=== PATIENT | male | born 1970 | race African-American/Black ===

== ENCOUNTER 2025-04-19 20:50 | Emergency (ER) | payer OTHER, SELFPAY ==
--- NOTE | 2025-04-19 21:03 | ED_ITS ---
HPI - Abdominal Pain General Time Seen by Provider: 21:03 Date Seen: 04/19/25 Chief Complaint: Abdominal Pain Stated Complaint: Abdominal pain Time Seen by Provider: 04/19/25 21:02 Source: patient Mode of arrival: ambulatory Limitations: no limitations History of Present Illness HPI narrative: 55-year-old male who presents today with abdominal pain. Patient with 2 days of right-sided abdominal pain. He notices this most when he moves or when he takes big breath. Denies shortness of breath, no nausea, vomiting, or diarrhea. No prior surgeries. Denies fevers or chills, pain is not better worse with eating. Has not taken anything for this. 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 Related Data Home Medications ?Medication ?Instructions ?Recorded ?Confirmed No Known Home Medications 04/19/2503/25 Allergies Allergy/AdvReac Type Severity Reaction Status Date / Time No Known Drug Allergies Allergy Verified 04/19/25 20:55 Exam Narrative: Exam Narrative: General: Well-developed and well-nourished, no acute distress Head: Atraumatic and normocephalic Eyes: Pupils are equal reactive, extraocular motions intact, conjunctiva clear ENT: External nose and ears are normal, posterior pharynx without erythema or exudate Neck: No midline cervical tenderness, full spontaneous range of motion the neck, trachea midline, no adenopathy Heart: Regular rate and rhythm no murmurs or thrills Lungs: Clear to auscultation bilaterally without wheezes or crackles Abdomen: Soft, nontender, nondistended with active bowel sounds Musculoskeletal: No tenderness, deformity, or edema Neurologic: Awake, alert, and oriented x3, no gross focal neurologic deficits, cranial nerves intact as tested Psych: Mood and affect are appropriate Skin: No rashes Const: Vital Signs, click to edit/add: Vital Signs - 24 hr 04/19/25 21:04 Temperature 98.8 F Pulse Rate [Pulse Oximeter] 84 Respiratory Rate 16 Blood Pressure [Ri ght Upper Arm] 172/136 H Pulse Oximetry 95 Oxygen Delivery Me thod Room Air Course Course ED Course: Reviewed [facility], no prior records available. Patient seen examined, presents today with right-sided abdominal pain for last couple of days, worse with breathing and movement. No shortness of breath. On exam, patient is hypertensive, no tachycardia or hypoxia, no abdominal tenderness on exam. This may be musculoskeletal, consider gallbladder as well but no right upper quadrant tenderness and not worse with eating. Consider pulmonary embolism give the pain is sharp with deep inspiration, although location is little bit lower than would typically be thought of for pulmonary embolism, he has no tenderness convincing for intra-abdominal pathology. Cannot PERC out due to age, D-dimer ordered. Reevaluation(s) Time of Reevaluation #1: 21:59 Reevaluation #1: Labs independently interpreted by me with elevated D-dimer is 0.95, CT PE study is ordered. Also elevated hepatic panel with elevated AST, ALT, alkaline phosphatase but normal bilirubin and lipase. No prior for comparison, CT order ed. Time of Reevaluation #2: 23:06 Reevaluation #2: CT scan of the chest independently interpreted by me negative for acute fin dings. Reviewed radiology interpretation of CT scan of the chest as well as CT scan of the abdomen and pelvis. No acute findings but there is a lytic lesion on the right iliac wing. Patient will follow-up with his primary care provider for further evaluation of this coming to comparison with prior imaging or MRI. No acute findings to explain patient's pain today. No evidence of acute cholecys titis, cholelithiasis, appendicitis, pulmonary embolism, pneumonia. ACS is clinically unlikely. Patient is stable for discharge with outpatient follow-up. Vital Signs Vital signs: Initial Vital Signs Temperature 98.8 F 04/19/25 21:04 Temperature Source Temporal Artery Scan 04/19/25 21:04 Pulse Rate 84 04/19/25 21:04 Respiratory Rate 16 04/19/25 21:04 Blood Pressure 172/136 H 04/19/25 21:04 Blood Pressure Mean 148 H 04/19/25 21:04 Blood Pressure Position Sitting 04/19/25 21:04 Pulse Oximetry 95 04/19/25 21:04 Oxygen Delivery Method Room Air 04/19/25 21:04 Vital Signs Temperature 98.8 F 04/19/25 21:04 Pulse Rate 84 04/19/25 21:04 Respiratory Rate 16 04/19/25 21:04 Blood Pressure 172/136 H 04/19/25 21:04 Pulse Oximetry 95 04/19/25 21:04 Oxygen Delivery Method Room Air 04/19/25 21:04 Temperature 98.8 F 04/19/25 21:04 Pulse Rate 84 04/19/25 21:04 Respiratory Rate 16 04/19/25 21:04 Blood Pressure 172/136 H 04/19/25 21:04 Pulse Oximetry 95 04/19/25 21:04 Oxygen Delivery Method Room Air 04/19/25 21:04 MDM - Abdominal Pain Lab Data Labs: Lab Results 04/19/25 04/19/25 Range/Units 21:21 Unknown WBC 6.93 (4.50-11.00) K/uL RBC 5.23 (4.30-5.90) m/uL Hgb 15.3 (13.5-17.5) gm/dL Hct 44.8 (37.0-53.0) % MCV 86 (80-100) fL MCH 29 (26-34) pg MCHC 34 (32-36) gm/dL RDW Coeff of Sumit 13.0 (11.5-15.5) % Plt Count 173 (140-440) K/uL Neut % (Auto) 52.7 (42.0-72.0) % Lymph % (Auto) 33.5 (20-44) % [place] % (Auto) 9.7 (0.0-11.0) % Eos % (Auto) 3.5 (0.0-7.0) % Baso % (Auto) 0.3 (0.0-3.0) % Neut # (Auto) 3.66 (1.7-7.0) K/uL Lymph # (Auto) 2.32 (0.90-2.90) K/uL [place] # (Auto) 0.70 (0.00-0.90) K/UL Eos # (Auto) 0.24 (0.00-0.50) K/uL Baso # (Auto) 0.02 (0.00-0.30) K/uL Abs Immat Gran (auto) 0.02 (0.00-0.30) K/uL Imm/Tot Granulo (auto) 0.3 % D-Dimer Quant (PE/DVT) 0.95 H (0.00-0.50) ug/ml Sodium 133 L (135-149) mmol/L Potassium 3.9 (3.6-5.1) mmol/L Chloride 99 (96-114) mmol/L Carbon Dioxide 27 (20-32) mmol/L Anion Gap 7 (7-15) mEq/L BUN 10 (7-30) mg/dL Creatinine 1.0 (0.5-1.5) mg/dL Estimated Creat Clear 81.70 Estimated GFR 89 ml/min Glucose 190 H (60-115) mg/dL Calcium 9.1 (8.4-10.6) mg/dL Total Bilirubin 1.4 (0.1-1.5) mg/dL Direct Bilirubin 0.3 (0.0-0.5) mg/dL AST 84 H (12-35) U/L ALT 145 H (4-50) U/L Alkaline Phosphatase 161 H (40-150) U/L Total Protein 7.7 (6.0-8.3) g/dL Albumin 3.9 (3.3-5.0) g/dL Lipase 157 (23-300) U/L Urine Color Yellow (Yellow) Urine Appearance Clear (Clear) Urine pH 6.0 (5.0-8.5) Ur Specific [place] 1.020 (1.000-1.030) Urine Protein Negative (Negative) Urine Glucose (UA) Negative (Negative) Urine Ketones Negative (Negative) Urine Blood Negative (Negative) Urine Nitrite Negative (Negative) Urine Bilirubin Negative (Negative) Urine Urobilinogen 2.0 A (0.2-1.0) Ur Leukocyte Esterase Negative (Negative) Urine RBC 0-2 (0-2) Urine WBC 0-2 (0-5) Ur Squamous Epith Cells Few (None-Few) Urine Bacteria None (None) Discharge Plan Discharge Clinical Impression: Right lateral abdominal pain, Abnormal CT scan, pelvis Patient Disposition: Home, Self-Care Condition: Stable Instructions: Acute Abdominal Pain (DC) Additional Instructions: No definite cause for your pain is found today. Your urine does not demonstrate any signs of infection and there are no kidney stones. Your liver tests are slightly elevated any should follow-up with your regular doctor to have these rechecked in about a week. Your CT scan does not show any abnormality of the liver or gallbladder. Your CT scan of your chest does not demonstrate any blood clots in the lungs or pneumonia. Take Tylenol or ibuprofen as needed for pain. Your CT scan does show a spot on the pelvis on the right side. This likely is a cyst which is benign, however will need follow-up with your regular doctor. Activity Level: No Restrictions Discharge Diet: Regular Prescriptions: No Action No Known Home Medications Follow Up/Referrals: Provider,Not a Local [Primary Care Provider, Family Practice] Stand Alone Forms: [employer] Info Instructions
[2025-04-19 21:04] VITALS: BP 172/136; PULSE 84; RESP 16; TEMP 37.1; O2SAT 95; BMI 31.2
[2025-04-19 21:29] LABS: Hematocrit* 44.8 % (37.0-53.0); Hemoglobin* 15.3 gm/dL (13.5-17.5); Immature Granulocytes Abs Auto 0.02 K/uL (0.00-0.30); Immature Granulocytes Pct Auto 0.3 %; Lymphocytes Absolute Auto 2.32 K/uL (0.90-2.90); Mean Corpuscular HGB Conc 34 gm/dL (32-36); Mean Corpuscular Hemoglobin 29 pg (26-34); Mean Corpuscular Volume 86 fL (80-100); RDW Coefficient of Variation % 13.0 % (11.5-15.5); Red Blood Count* 5.23 m/uL (4.30-5.90); White Blood Count* 6.93 K/uL (4.50-11.00)
[2025-04-19 21:36] LABS: Slide Review Reflex No
[2025-04-19 21:41] LABS: Albumin* 3.9 g/dL (3.3-5.0); Chloride* 99 mmol/L (96-114); Potassium* 3.9 mmol/L (3.6-5.1); Sodium* 133 mmol/L (135-149)
[2025-04-19 21:43] LABS: Blood Urea Nitrogen* 10 mg/dL (7-30); Creatinine* 1.0 mg/dL (0.5-1.5); Est. Creatinine Clearance* 81.70; Estimated Glomerular Filt Rate 89 ml/min
[2025-04-19 21:44] LABS: Alanine Aminotransferase* 145 U/L (4-50); Alkaline Phosphatase* 161 U/L (40-150); Anion Gap 7 mEq/L (7-15); Aspartate Amino Transferase* 84 U/L (12-35); Bilirubin Direct* 0.3 mg/dL (0.0-0.5); Bilirubin Total* 1.4 mg/dL (0.1-1.5); Calcium* 9.1 mg/dL (8.4-10.6); Carbon Dioxide* 27 mmol/L (20-32); Glucose* 190 mg/dL (60-115); Total Protein* 7.7 g/dL (6.0-8.3)
[2025-04-19 21:47] LABS: D Dimer Quantitative* 0.95 ug/ml (0.00-0.50)
--- NOTE | 2025-04-19 21:59 | CRLHL7_ITS ---
For Patients: As a result of the Century Cures Act, medical imaging exams and procedure reports are released immediately into your electronic medical record. You may view this report before your referring provider. If you have questions, please contact your health care provider. INDICATION: Right-sided abdominal pain. Elevated liver function tests. TECHNIQUE: CT abdomen and pelvis acquired with 95 cc Isovue 370 IV contrast. COMPARISON: None. FINDINGS: Lower chest: Please see separately dictated CTA of the chest for discussion of intrathoracic contents. Liver: Unremarkable. Gallbladder and bile ducts: Unremarkable. Pancreas: Unremarkable. Spleen: Unremarkable. Adrenal glands: Unremarkable. Kidneys: Symmetric renal enhancement. No hydronephrosis or hydroureter. No obstructing calculi. GI tract: No bowel obstruction. No suspicious bowel wall thickening. Normal appendix. Vasculature: No abdominal aortic aneurysm. Grossly patent vasculature. Lymph nodes: No suspicious lymphadenopathy. Peritoneum/Abdominal Wall: No ascites or pneumoperitoneum. Small fat containing right inguinal hernia. No acute abdominal wall abnormality. Pelvis: Mild bladder wall thickening. Unremarkable prostate and seminal vesicles. Bones: No acute abnormality. Nonspecific right iliac lytic lesion measuring 1.1 cm (series 2, image 92) IMPRESSION: 1. Mild bladder wall thickening. Correlate for cystitis. Otherwise no acute intra-abdominal/pelvic pathology appreciated. 2. Nonspecific right iliac wing lytic lesion measuring 1.1 cm. Recommend comparison with prior abdominal imaging, if available, to assess for interval change. Otherwise, recommend further characterization with outpatient MRI or bone scan. Please note that all CT scans at this facility use dose modulation, iterative reconstruction, and/or weight-based dosing when appropriate to reduce radiation dose to as low as reasonably achievable. Dictated by Mickey Alonso MD @ 04/19/2025 10:55:22 PM (Electronically Signed)
--- NOTE | 2025-04-19 21:59 | CRLHL7_ITS ---
For Patients: As a result of the Century Cures Act, medical imaging exams and procedure reports are released immediately into your electronic medical record. You may view this report before your referring provider. If you have questions, please contact your health care provider. INDICATION: Pulmonary embolism (PE) suspected, positive D-dimer. Pleuritic chest pain. TECHNIQUE: CT chest PE was acquired with 95 cc Isovue 370 IV contrast. Multiplanar reformats performed including 3D MIP reconstructions. COMPARISON: None. FINDINGS: Heart and vasculature: No pulmonary embolism identified. Main pulmonary artery normal in caliber. No thoracic aortic aneurysm. No cardiomegaly or pericardial effusion. No CT evidence of right heart strain. Lungs and pleura: Bibasilar atelectasis no definite focal consolidation. No pleural effusion or pneumothorax. Patent central airways. Calcified pleural plaques at the right lung base. Lymph nodes/mediastinum: No suspicious lymphadenopathy. Chest wall: No suspicious chest wall mass or fluid collection. Upper abdomen: Please see separately dictated CT of the abdomen and pelvis for discussion intra-abdominal contents. Bones: No acute abnormality. IMPRESSION: 1. No pulmonary embolism identified. 2. No acute intrathoracic pathology. 3. Calcified pleural plaque at the right lung base which may reflect sequelae of prior asbestos exposure. Please note that all CT scans at this facility use dose modulation, iterative reconstruction, and/or weight-based dosing when appropriate to reduce radiation dose to as low as reasonably achievable. Dictated by Mickey Alonso MD @ 04/19/2025 10:50:57 PM (Electronically Signed)
[2025-04-19 22:06] LABS: Appearance Urine Clear (Clear)
--- OUTSIDE RECORDS SUMMARY | 2025-04-19 22:11 | XMS_ITS | Continuity of Care Document ---
Author Organization Pamela mack of [facility] and Its Subsidiaries and Affiliates Address [address] [address] Sri VarmaJULIANN [address] Care Team Providers Care Curator Name Role Phone Unavailable Primary Care Provider Unavailabl e Encounters Date Type Department Care Team Description 10/20/2022 Travel 10/20/2022 History [facility] Ramírez Elizabeth16 Morgan RudolphJULIANN Bass [phone] Shakira Garrido PA 10/20/2022 2:20 PM CDT Office Visit [facility] January Johnson16 [address] RudolphJULIANN Bass [phone] Shakira Garrido PA Well adult exam (Primary Dx); Hepatitis B surface antigen positive; Lipid screening; Prostate cancer screening; Essential hypertension; Colon cancer screening 07/29/2022 Telephone [facility] January Johnson16 Morgan ConnJULIANN Bass [phone] Una Couch, 04/20/2022 Telephone [facility] Ramírez Elizabeth16 [address] RudolphJULIANN Bass [phone] Noris Martino Outreach (Colon Cancer Screening Due: /) 01/10/2022 Telephone [facility] January Johnson16 [address] RudolphJULIANN Bass [phone] Una Couch, 11/29/2021 Telephone [facility] Colorectal Surgery [address] [facility] [place] [address] Indra Morales MD 11/11/2021 History [facility] Colorectal Surgery [address] J[place] STOVER [address] Shelbi Neely NP 11/11/2021 Travel 11/11/2021 11:20 AM CDT Office Visit [facility] Colorectal Surgery [address] [facility] [address] Shelbi Neely NP Encounter for screening colonoscopy (Primary Dx) 09/21/2021 History [facility] January RAMÍREZJULIANN [address] Una Couch DO 09/21/2021 11:40 AM HR ASSISTANT Office Visit [facility] January Joel JULIANN RAMÍREZ [address] Una Couch DO Felon of finger of right hand (Primary Dx); Vitamin D deficiency; Essential hypertension; Overweight with body mass index (BMI) of 28 to 28.9 in adult 09/20/2021 History [facility] Gastroenterology - [place] [address] Jimé[place]ULIANN [address] Heike Luna, SENIOR PROJECT MANAGER 09/20/2021 Travel 09/20/2021 2:40 PM HR ASSISTANT Video Visit [facility] Gastroenterology - [place] [address] JUL[place]ANN Jiménez [address] Heike Luna, SENIOR PROJECT MANAGER 09/06/2021 Travel 08/12/2021 Telephone [facility] January Conntle Marycruz JULIANN RAMÍREZ [address] Una Couch DO 08/11/2021 History [facility] January ConnJULIANN Bass [phone] Una Couch, DO 08/11/2021 9:40 AM HR ASSISTANT Office Visit [facility] January RAMÍREZ JULIANN [address] Una oCuch, Essential hypertension (Primary Dx); Vitamin D deficiency; Elevated bilirubin; Elevated transaminase level; Screening for malignant neoplasm of colon; Colonoscopy refused; Refused influenza vaccine; COVID-19 vaccination refused; Vaccination refused by patient; Overweight with body mass index (BMI) of 28 to 28.9 in adult 08/10/2021 Travel 07/07/2021 Travel 06/21/2021 Telephone [facility] Januray RAMÍREZJULIANN [phone] Una Couch, DO 06/21/2021 Travel 06/18/2021 Travel 04/16/2021 History [facility] January RAMÍREZJULIANN [address] Una Couch, 04/16/2021 11:00 AM CDT Office Visit [facility] January RAMÍREZJULIANN [phone] Una Couch DO Essential hypertension (Primary Dx); Screening for malignant neoplasm of colon; Overweight with body mass index (BMI) of 29 to 29.9 in adult 04/15/2021 Travel 04/08/2021 Telephone [facility] Ramírez Helga RAMÍREZJULIANN [address] Una Couch, 12/16/2020 Auto-Released Order [facility] Ramírez Helga Joel JULIANN RAMÍREZ [address] Una Couch, Elevated transaminase level; Stage 2 chronic kidney disease 11/17/2020 Telephone [facility] Ramírez Helga Joel JULIANN RAMÍREZ [phone] Una Couch, 11/12/2020 History [facility] January 65JULIANN Wade [address] Una Couch DO 11/12/2020 2:20 PM CDT Office Visit [facility] JULIANN Moses [address] Una Couch, Encounter to establish care with new doctor (Primary Dx); Essential hypertension; Vitamin D deficiency; Screening for deficiency anemia; Screening for diabetes mellitus (DM); Screening for lipid disorders; Screening for thyroid disorder; Prostate cancer screening; Encounter for hepatitis C screening test for low risk patient; Overweight with body mass index (BMI) of 29 to 29.9 in adult Allergies No known active allergies Medications * Be aware that medications may not be up to date as of this document.Always verify current medications with patient. amLODIPine (NORVASC) 10 mg tabletIndications :Essential hypertension Take 1 tablet by mouth in the morning. 90 tablet 3 10/20/2022 Active Active Problems Problem Noted Date Diagnosed Date Hepatitis B surface antigen positive 10/21/2022 Essential hypertension 11/12/2020 Overview (09/21/2021): -Chronic, labile; better today -Diagnosed in 10/2020 -Low-salt diet -Exercise/weight loss -Check BP on the road; log and MyChart message physician if worsening BP readings -Continue amlodipine to 10 mg daily Resolved Problems Problem Noted Date Diagnosed Date Resolved Date Felon of finger of right hand 09/21/2021 10/21/2022 Overview (09/21/2021): -Splinter removed; moderate amount of pus drained -Patient with instant relief -Mupirocin TID x 7 days -Notify physician if worsens/no improvement Overweight with body mass in dex (BMI) of 28 to 28.9 in adult 11/12/2020 10/21/2022 Overview (11/12/2020): -Discussed lifestyle modifications including increasing physical activity healthy diet changes to achieve weight loss goals and improve overall health Encounter for hepatitis C sc reening test for low risk patient 11/12/2020 10/21/2022 Prostate cancer screening 11/12/2020 Screening for thyroid disorder 11/12/2020 08/11/2021 Screening for lipid disorders 11/12/2020 10/21/2022 Screening for diabetes mellitus (DM) 11/12/2020 10/21/2022 Screening for deficiency anemia 11/12/2020 10/21/2022 Vitamin D deficiency 11/12/2020 022 Encounter to establish care with new doctor 11/12/2020 10/21/2022 Immunizations Immunization Administration Dates Next Due Hep A / Hep B 07/21/2008 Social History Smoking Status as of 04/19/2025 Tobacco Use Types Packs/Day Years Used Date Smoking Tobacco: Never Assessed PHQ-2 Answer Date Recorded PHQ-2 Score 0 08/11/2021 Sex and Gender Information Value Date Recorded Sex Assigned at Not on file Legal Sex Male 1:24 AM CDT Gender Identity Not on file Sexual Orientation Not on file Last Filed Vital Signs Vital Sign Reading Time Taken Comments Blood Pressure 130/82 10/20/2022 2:40 PM CDT Pulse 88 10/20/2022 2:40 PM CDT Temperature 36.6 C (97.9 F) 10/20/2022 2:40 PM CDT Respiratory Rate 16 11/12/2020 2:37 PM CDT Oxygen Saturation - - Inhaled Oxygen Concentration - - Weight 93.9 kg (207 lb) 10/20/2022 2:40 PM CDT Height 175.3 cm (5' 9) 10/20/2022 2:40 PM CDT Body Mass Index 30.57 10/20/2022 2:40 PM CDT Plan of Treatment Not on file Procedures Procedure Name Priority Date/Time Associated Diagnosis Comments PSA Routine 10/20/2022 3:28 PM CDT Prostate cancer screening LIPID PANEL Routine 10/20/2022 3:28 PM CDT Lipid screening COMPREHENSIVE METABOLIC PANEL Routine 10/20/2022 3:28 PM CDT Well adult exam Essential hypertension CBC WITH MANUAL DIFF Routine 10/20/2022 3:28 PM CDT Well adult exam Essential hypertension HEPATITIS PANEL, ACUTE Routine 08/11/2021 10:41 AM HR ASSISTANT Elevated bilirubin Elevated transaminase level COMPREHENSIVE METABOLIC PANEL Routine 08/11/2021 10:41 AM HR ASSISTANT Essential hypertension Elevated bilirubin Elevated transaminase level VITAMIN D 25 HYDROXY Routine 08/11/2021 10:41 AM HR ASSISTANT Vitamin D deficiency URINALYSIS,ROUTINE [facility] Routine 11/12/2020 3:35 PM CDT Screening for diabetes mellitus (DM) Essential hypertension VITAMIN D 25 HYDROXY Routine 11/12/2020 3:34 PM CDT Vitamin D deficiency TSH Routine 11/12/2020 3:34 PM CDT Screening for thyroid disorder PSA Routine 11/12/2020 3:34 PM CDT Prostate cancer screening LIPID PANEL Routine 11/12/2020 3:34 PM CDT Screening for lipid disorders HEPATITIS C ANTIBODY Routine 11/12/2020 3:34 PM CDT Encounter for hepatitis C screening test for low risk patient HEMOGLOBIN A1C Routine 11/12/2020 3:34 PM CDT Screening for diabetes mellitus (DM) COMPREHENSIVE METABOLIC PANEL Routine 11/12/2020 3:34 PM CDT Screening for diabetes mellitus (DM) Essential hypertension CBC AND DIFFERENTIAL Routine 11/12/2020 3:34 PM CDT Essential hypertension Results * PSA (10/20/2022 3:28 PM CDT) Only the most recent of2 resultswithin the time period is included. Prostate Specific Antigen 1.6 0.0 - 4.0 ng/mL [facility] 1 Comment: Leah ECLIA methodology. According to the [place] [employer], Serum PSA should decrease and remain at undetectable levels after radical prostatectomy. The AUA defines biochemical recurrence as an initial PSA value 0.2 ng/mL or greater followed by a subsequent confirmatory PSA value 0.2 ng/mL or greater. Values obtained with different assay methods or kits cannot be used interchangeably. Results cannot be interpreted as absolute evidence of the presence or absence of malignant disease. Blood VENOUS STRUCTURE / Unknown 10/20/2022 3:28 PM CDT 10/20/2022 Narrative [facility] - 10/21/2022 7:17 AM CDT Performed at: - [address] [id number] [employer] Team Member: Tonio Fischer MD, Phone: [phone] Patient Fasting: No us Shakira POWERS LAB BLOOD ORDERABLES Final Res ult [facility] [address] [place] [address], [facility] [phone] [facility] 1 * CBC with Manual Differential (10/20/2022 3:28 PM CDT) White Blood Cell Count 6.2 3.4 - 10.8 x10E3/uL [facility] 1 Red Blood Cell Count 5.19 4.14 - 5.80 x10E6/uL [facility] 1 Hemoglobin 15.3 13.0 - 17.7 g/dL [facility] 1 Hematocrit 46.0 37.5 - 51.0 % [facility] 1 Mean Corpuscular Volume 89 79 - 97 fL [facility] 1 MEAN CORPUSCULAR HEMOGLOBIN 29.5 26.6 - 33.0 pg [facility] 1 Mean Corpuscular Hemoglobin Conc 33.3 31.5 - 35.7 g/dL [facility] 1 Red Cell Distribution Width 13.6 11.6 - 15.4 % [facility] 1 Platelet Count 207 150 - 450 x10E3/uL [facility] 1 Segs % 45 Not Estab. % [facility] 1 Lymphocytes % 38 Not Estab. % [facility] 1 Monocytes % 10 Not Estab. % [facility] 1 Eosinophils % 6 Not Estab. % [facility] 1 Basophils % 1 Not Estab. % [facility] 1 Segs Abs 2.8 1.4 - 7.0 x10E3/uL [facility] 1 Lymphocytes Abs 2.4 0.7 - 3.1 x10E3/uL [facility] 1 Monocytes Abs 0.6 0.1 - 0.9 x10E3/uL [facility] 1 Eosinophils Abs 0.4 0.0 - 0.4 x10E3/uL [facility] 1 Basophils Abs 0.1 0.0 - 0.2 x10E3/uL [facility] 1 RBC Comment Vader cells present. Normal [facility] 1 Platelet adequacy Adequate Adequate [facility] 1 Blood VENOUS STRUCTURE / Unknown 10/20/2022 3:28 PM CDT 10/20/2022 Narrative [facility] - 10/21/2022 1:10 PM CDT Performed at: [address] [id number] [employer] Team Member: Tonio Fischer MD, Phone: [phone] Patient Fasting: No Shakira POWERS LAB BLOOD ORDERABLES Final Res ult [facility] [address] [place] [address], [facility] [phone] [facility] 1 * Lipid panel (10/20/2022 3:28 PM CDT) Only the most recent of2 resultswithin the time period is included. Cholesterol 167 100 - 199 mg/dL [facility] 1 Triglycerides 129 0 - 149 mg/dL [facility] 1 HDL Cholesterol 48 >39 mg/dL [facility] 1 VLDL Cholesterol Lucio 23 5 - 40 mg/dL [facility] 1 Low Density Lipoprotein (Calculated) 96 0 - 99 mg/dL [facility] 1 Blood VENOUS STRUCTURE / Unknown 10/20/2022 3:28 PM CDT 10/20/2022 Narrative [facility] - 10/21/2022 7:17 AM CDT Performed at: [address] [id number] [employer] Team Member: Tonio Fischer MD, Phone: [phone] Patient Fasting: No us Shakira POWERS LAB BLOOD ORDERABLES Final Res ult [facility] [address] [place] [address], [facility] [phone] [facility] 1 * (ABNORMAL) Comprehensive metabolic panel (10/20/2022 3:28 PM CDT) Only the most recent of3 resultswithin the time period is included. [facility] Glucose Level 87 70 - 99 mg/dL [facility] 1 Blood Urea Nitrogen Level 13 6 - 24 mg/dL [facility] 1 Creatinine Level 1.31(H) 0.76 - 1.27 mg/dL [facility] 1 EGFR 66 >59 mL/min/1.7 3 [facility] 1 BUN/Creatinine Ratio 10 9 - 20 [facility] 1 Sodium Level 141 134 - 144 mmol/L [facility] 1 Potassium Level 4.7 3.5 - 5.2 mmol/L [facility] 1 Chloride Level 104 96 - 106 mmol/L [facility] 1 CO2 Level 23 20 - 29 mmol/L [facility] 1 Calcium Level 9.5 8.7 - 10.2 mg/dL [facility] 1 Protein Total 7.4 6.0 - 8.5 g/dL [facility] 1 Albumin Level 4.3 3.8 - 4.9 g/dL [facility] 1 Globulin 3.1 1.5 - 4.5 g/dL [facility] 1 Albumin/Globulin Ratio 1.4 1.2 - 2.2 [facility] 1 Bilirubin Total 1.2 0.0 - 1.2 mg/dL [facility] 1 Alkaline Phosphatase Level 124(H) 44 - 121 IU/L [facility] 1 SGOT (AST) 80(H) 0 - 40 IU/L [facility] 1 SGPT (ALT) 150(H) 0 - 44 IU/L [facility] 1 Blood VENOUS STRUCTURE / Unknown 10/20/2022 3:28 PM CDT 10/20/2022 Narrative [facility] - 10/21/2022 7:17 AM CDT Performed at: [address] [place] [id number] [employer] Team Member: Tonio Fischer MD, Phone: [phone] Patient Fasting: No us Shakira POWERS LAB BLOOD ORDERABLES Final Res ult Performing Organization Address [facility] Co de Phone Number [facility] [address] [place] [address], [facility] [phone] [facility] 1 * (ABNORMAL) Hepatitis panel, acute (08/11/2021 10:41 AM HR ASSISTANT) Hep A IgM Negative Negative [facility] 1 Hepatitis B Surface Antigen Screen Positive(A) Negative [facility] 1 Comment:Positive HBsAg verif ied by algorithm coupled with screening index. HBcAb IgM Negative Negative [facility] 1 Hepatitis C Virus Antibody Screen <0.1 0.0 - 0.9 s/co ratio [facility] 1 Comment: Negative: < 0.8 Indeterminate: 0.8 - 0.9 Positive: > 0.9 The CDC recommends that a positive HCV antibody result be followed up with a HCV Nucleic Acid Amplification test (487106). Effective October 04, 2021 Hepatitis Panel (4) will be made non-orderable. [facility] offers order code [id number] Acute Hepatitis. Blood VENOUS STRUCTURE / Unknown 08/11/2021 10:41 AM HR ASSISTANT 08/11/2021 Narrative [facility] - 08/12/2021 11:36 AM HR ASSISTANT Performed at: [facility] [address] [id number] [employer] Team Member: Irvin Donahue MD, Phone: [phone] Patient Fasting: Yes us Una Couch DO LAB BLOOD ORDERABLES Final Res ult Performing Organization Address [facility]/ZIP Co de Phone Number [facility] [address] [place] [address], [facility] [phone] [facility] 1 * (ABNORMAL) Vitamin D 25 hydroxy (08/11/2021 10:41 AM HR ASSISTANT) Only the most recent of2 resultswithin the time period is included. Vitamin D Total 21.3(L) 30.0 - 100.0 ng/mL [facility] 1 Comment: Vitamin D deficiency has been defined by the [employer] of [employer] and an Endocrine Society practice guideline as a level of serum 25-OH vitamin D less than 20 ng/mL (1,2). The Endocrine Society went on to further define vitamin D insufficiency as a level between 21 and 29 ng/mL (2). 1. IOM ([place] of Medicine). 2010. Dietary reference intakes for calcium and D. [place]: The National Academies Press. 2. Nataliia MF, Adeline MARROQUIN, Diana YA, et al. Evaluation, treatment, and prevention of vitamin D deficiency: an Endocrine Society clinical practice guideline. JCEM. 2010; 96(7):1911-30. Blood VENOUS STRUCTURE / Unknown 08/11/2021 10:41 AM HR ASSISTANT 08/11/2021 Narrative [facility] - 08/12/2021 3:35 AM HR ASSISTANT Performed at: [address] [id number] [employer] Team Member: Irvin Donahue MD, Phone: [phone] Patient Fasting: Yes us Una Couch DO LAB BLOOD ORDERABLES Final Res ult [facility] [address] [place] [address], [facility] [phone] [facility] 1 * Urinalysis Microscopic if indicated LC (11/12/2020 3:35 PM CDT) Pathologist [facility] Specific [place] UA 1.022 1.005 - 1.030 [facility] 1 PH UA 6.0 5.0 - 7.5 [facility] 1 Color, Urine Yellow Yellow [facility] 1 Clarity, Urine Clear Clear [facility] 1 Leukocyte Esterase UA Negative Negative [facility] 1 Protein UA Negative Negative/Tra ce [facility] 1 Glucose UA Negative Negative [facility] 1 Ketones UA Negative Negative [facility] 1 HGB Urine Negative Negative [facility] 1 Bilirubin Urine Negative Negative [facility] 1 Urobilinogen Urine 1.0 0.2 - 1.0 mg/dL [facility] 1 Nitrite UA Negative Negative [facility] 1 Microscopic Examination Comment [facility] 1 Comment:Microscopic not ziggy cated and not performed. Urine Clean Catch URINE SPECIMEN / Unknown 11/12/2020 3:35 PM CDT 11/12/2020 Comment:URINE Narrative [facility] - 11/13/2020 4:07 AM CDT Performed at: [facility] [id number] [employer] Team Member: Irvin Donahue MD, Phone: [phone] Una Couch DO URINE ORDERABLES Final Result Performing Organization Address [facility] de Phone Number [facility] [address] [place] [address], [facility] [phone] [facility] 1 * Hepatitis C antibody (11/12/2020 3:34 PM CDT) [facility] Hepatitis C Virus Antibody Screen <0.1 0.0 - 0.9 s/co ratio [facility] 1 Comment: Negative: < 0.8 Indeterminate: 0.8 - 0.9 Positive: > 0.9 The CDC recommends that a positive HCV antibody result be followed up with a HCV Nucleic Acid Amplification test (605736). Blood VENOUS STRUCTURE / Unknown 11/12/2020 3:34 PM CDT 11/12/2020 Comment:VEIN Narrative [facility] - 11/13/2020 7:15 AM CDT Performed at: [address] [id number] [employer] Team Member: Irvin Donahue MD, Phone: [phone] Una Couch DO LAB BLOOD ORDERABLES Final Res ult Performing Organization Address [facility] de Phone Number [facility] [address] [place] [address], [facility] [phone] [facility] 1 * CBC and differential (11/12/2020 3:34 PM CDT) [facility] White Blood Cell Count 4.4 3.4 - 10.8 x10E3/uL [facility] 1 Red Blood Cell Count 5.67 4.14 - 5.80 x10E6/uL [facility] 1 Hemoglobin 16.7 13.0 - 17.7 g/dL [facility] 1 Hematocrit 49.4 37.5 - 51.0 % [facility] 1 Mean Corpuscular Volume 87 79 - 97 fL [facility] 1 MEAN CORPUSCULAR HEMOGLOBIN 29.5 26.6 - 33.0 pg [facility] 1 Mean Corpuscular Hemoglobin Conc 33.8 31.5 - 35.7 g/dL [facility] 1 Red Cell Distribution Width 12.9 11.6 - 15.4 % [facility] 1 Platelet Count 216 150 - 450 x10E3/uL [facility] 1 Neutrophils % 48 Not Estab. % [facility] 1 Lymphocytes % 36 Not Estab. % [facility] 1 Monocytes % 12 Not Estab. % [facility] 1 Eosinophils % 3 Not Estab. % [facility] 1 Basophils % 1 Not Estab. % [facility] 1 Neutrophils Abs 2.1 1.4 - 7.0 x10E3/uL [facility] 1 Lymphocytes Abs 1.6 0.7 - 3.1 x10E3/uL [facility] 1 Monocytes Abs 0.6 0.1 - 0.9 x10E3/uL [facility] 1 Eosinophils Abs 0.1 0.0 - 0.4 x10E3/uL [facility] 1 Basophils Abs 0.0 0.0 - 0.2 x10E3/uL [facility] 1 Immature Granulocytes 0 Not Estab. % [facility] 1 Immature Grans (Abs) 0.0 0.0 - 0.1 x10E3/uL [facility] 1 Blood VENOUS STRUCTURE / Unknown 11/12/2020 3:34 PM CDT 11/12/2020 Comment:VEIN Narrative [facility] - 11/13/2020 3:35 AM CDT Performed at: 01 - [facility] [id number] [employer] Team Member: Irvin Donahue MD, Phone: [phone] us Una Couch DO LAB BLOOD ORDERABLES Final Res ult [facility] [address] [place] [address], [facility] [phone] [facility] 1 * TSH (11/12/2020 3:34 PM CDT) TSH 1.060 0.450 - 4.500 uIU/mL [facility] 1 Blood VENOUS STRUCTURE / Unknown 11/12/2020 3:34 PM CDT 11/12/2020 Comment:VEIN Narrative [facility] - 11/13/2020 4:07 AM CDT Performed at: - [facility] [address] [id number] [employer] Team Member: Irvin Donahue MD, Phone: [phone] Una Couch LAB BLOOD ORDERABLES Final Res ult Performing Organization Address [facility] de Phone Number [facility] [address] [place] [address], [facility] [phone] [facility] 1 * (ABNORMAL) Hemoglobin A1c (11/12/2020 3:34 PM CDT) Hemoglobin A1C 5.7(H) 4.8 - 5.6 % [facility] 1 Comment: Prediabetes: 5.7 - 6.4 Diabetes: >6.4 Glycemic control for adults with diabetes: <7.0 Blood VENOUS STRUCTURE / Unknown 11/12/2020 3:34 PM CDT 11/12/2020 Comment:VEIN Narrative [facility] - 11/13/2020 4:07 AM CDT Performed at: - [facility] [address] [id number] [employer] Team Member: Irvin Donahue MD, Phone: [phone] Una Couch DO LAB BLOOD ORDERABLES Final Res ult Performing Organization Address [facility] Co de Phone Number [facility] [address] [place] [address], [facility] [phone] [facility] 1 Visit Diagnoses Diagnosis Start Date Encounter to establish care with new doctor 11/12/2020 Essential hypertension Unspecified essential hypertension 11/12/2020 Vitamin D deficiency 11/12/2020 Screening for deficiency anemia Screening for other and unspecified deficiency anemia 11/12/2020 Screening for diabetes mellitus (DM) Screening for diabetes mellitus 11/12/2020 Screening for lipid disorders 11/12/2020 Screening for thyroid disorder 11/12/2020 Prostate cancer screening Special screening for malignant neoplasm of prostate 11/12/2020 Encounter for hepatitis C screening test for low risk patient 11/12/2020 Overweight with body mass index (BMI) of 29 to 29.9 in adult 11/12/2020 Elevated transaminase level 12/16/2020 Stage 2 chronic kidney disease 12/16/2020 Essential hypertension Unspecified essential hypertension 04/16/2021 Screening for malignant neoplasm of colon 04/16/2021 Overweight with body mass index (BMI) of 29 to 29.9 in adult 04/16/2021 Essential hypertension Unspecified essential hypertension 08/11/2021 Vitamin D deficiency 08/11/2021 Elevated bilirubin 08/11/2021 Elevated transaminase level 08/11/2021 Screening for malignant neoplasm of colon 08/11/2021 Colonoscopy refused 08/11/2021 Refused influenza vaccine 08/11/2021 COVID-19 vaccination refused 08/11/2021 Vaccination refused by patient 08/11/2021 Overweight with body mass index (BMI) of 28 to 28.9 in adult 08/11/2021 Hepatitis B surface antigen positive 08/12/2021 Felon of finger of right hand 09/21/2021 Vitamin D deficiency 09/21/2021 Essential hypertension Unspecified essential hypertension 09/21/2021 Overweight with body mass index (BMI) of 28 to 28.9 in adult 09/21/2021 Encounter for screening colonoscopy 11/11/2021 Hepatitis B surface antigen positive 10/20/2022 Lipid screening Screening for lipoid disorders 10/20/2022 Prostate cancer screening Special screening for malignant neoplasm of prostate 10/20/2022 Well adult exam Routine general medical examination at a health care facility 10/20/2022 Essential hypertension Unspecified essential hypertension 10/20/2022 Colon cancer screening Special screening for malignant neoplasms, colon 10/20/2022
--- OUTSIDE RECORDS SUMMARY | 2025-04-19 22:11 | XMS_ITS | Encounter Summary ---
Author Organization Pamela mack of [facility] and Its Subsidiaries and Affiliates Address [address] [address] [place] [address] Care Team Providers Care Hanging Flags Decorator Name Role Phone Harry Tabares MD Primary Care Provider [phone] Encounter Details Date Type Department Care Team (Late st Contact Info) Description 12/16/2020 Auto-Released Order [facility] [address] [id number] Una Couch DO [address] [facility] [place] [id number] Elevated transaminase level; Stage 2 chronic kidney disease Social History Tobacco Use Types Packs/Day Years Used Date Smoking Tobacco: Never Smokeless Tobacco: Never Alcohol Use Standard Drinks/Week Comments Never 0 (1 standard drink = 0.6 oz pur e alcohol) PHQ-2 Answer Date Recorded PHQ-2 Score 0 11/12/2020 Sex and Gender Information Value Date Recorded Sex Assigned at Not on file Legal Sex Male 1:24 AM CDT Gender Identity Not on file Sexual Orientation Not on file documented as of this encounter Plan of Treatment Not on file documented as of this encounter Visit Diagnoses Diagnosis Elevated transaminase level Stage 2 chronic kidney disease documented in this encounter Care Teams Hanging Flags Decorator Relationship Specialty Start Date End Date Harry Tabares MD [address] [facility] [place] [id number] PCP - General Internal Medicine and Pediatrics 10/20/22 10/20/22 documented as of this encounter
--- OUTSIDE RECORDS SUMMARY | 2025-04-19 22:11 | XMS_ITS | Patient Health Record ---
Author Organization [facility] [place] Address [address] [address] [place] [address] Care Team Providers Care Director Service Name Role [facility] Un[facility] [phone] Allergies No Known Allergies Reason For Referral No Information Medications Medication SIG (Take, Route, Fr equency, Duration) Notes Start Date End Date Status Vitamin D Active amLODIPine Besylate Active Bactrim DS 800-160 MG 1 tablet Orally Tw ice a day; Duration: 10 day(s) 09/20/2021 Active Plan Of Treatment No Information Insurance Providers Payer Name Payer Address Payer Phone Subscriber Number Group Number Insured Name Patient Relationship to Insured Coverage Start Date Coverage End Date [employer] ([place]) [address] [address] [place] [address] [id number] Nathan Morton Self - patient is the insured Medical (General) History Medical History History ICD Code hypertension
--- OUTSIDE RECORDS SUMMARY | 2025-04-19 22:11 | XMS_ITS | Encounter Summary ---
Author Organization Pamela mack of [facility] and Its Subsidiaries and Affiliates Address [address] [address] [place] [address] Care Team Providers Care Scow Captain Name Role Phone Harry Tabares MD Primary Care Provider [phone] Encounter Details Date Type Department Care Team (Late st Contact Info) Description 11/17/2020 Telephone [facility] [address] [place] [phone] Una Couch DO [address] [place] [address] Social History Tobacco Use Types Packs/Day Years [...] on file documented as of this encounter Miscellaneous Notes * Telephone Encounter - Yolande Kaufman MA - 11/17/2020 10:40 AM CDT ----- Message from Radha Vilallba sent at 11/17/2020 10:31 AM CDT ----- Contact: [phone] Nathan Morton is returning a call from the office. Please contact Nathan Morton at [phone] * Telephone Encounter - Yolande Kaufman MA - 11/17/2020 10:40 AM CDT Pt informed Me Dr Couch informed him fo his lab results documented in this encounter Plan of Treatment Not on file documented as of this encounter Visit Diagnoses Not on filedocumented in this encounter Care Teams Scow Captain Relationship Specialty Start Date End Date Harry Tabares MD [address] [place] [id number] PCP - General Internal Medicine and Pediatrics 10/20/22 10/20/22 documented as of this encounter
[2025-04-19 23:04] VITALS: BP 190/127; PULSE 88; RESP 21; TEMP 37.1; O2SAT 97
== END 2025-04-19 23:20 | disposition home or self-care (01) ==
PROVIDERS: Emergency Provider Family Medicine
DX: R10.31 Right lower quadrant pain (principal); R93.89 Abnormal findings on diagnostic imaging of other specified body structures
CPT/HCPCS: 36415; 71275; 74177; 80048; 80076; 81001; 83690; 85025; 85379; 99284; Q9967